=== PATIENT | male | born 1985 | race Caucasian/White ===

== ENCOUNTER 2017-02-07 06:24 | Emergency (ER) | payer BC, OTHER ==
[2017-02-07 06:48] VITALS: BP 141/100
--- NOTE | 2017-02-07 06:49 | EDM.PDOC ---
<Dontrell Strange - Last Filed: 02/07/17 06:46> ED HPI GENERAL MEDICAL PROBLEM - General Chief Complaint: Lower Extremity Injury/Pain Stated Complaint: ROLLED HIS RIGHT ANKLE Time Seen by Provider: 02/07/17 06:46 Source of Information: Reports: Patient - History of Present Illness INITIAL COMMENTS - FREE TEXT/NARRATIVE: He fell from a ladder about three weeks ago . Now he has right ankle pain. he denies other injury no LOC - Related Data Allergies Allergy/AdvReac Type Severity Reaction Status Date / Time No Known Allergies Allergy Verified 02/07/17 06:41 Home Meds: Home Meds . [No Known Home Meds] 02/07/17 [History] Review of Systems - Review of Systems Review Of Systems: See Below (no other injury reported) ED EXAM, GENERAL - Physical Exam Exam: See Below Free Text/Narrative:: right ankle: normal distal perfusion; bilateral tenderness; no joint instability ; lateral ankle swelling General Appearance: Alert, No Apparent Distress (right ankle: tenderness over medial and lateral malleolus with swelling about lateral malleolous) Course - Vital Signs Last Recorded V/S: Last Vital Signs Temp 36.5 C 02/07/17 06:41 Pulse 67 02/07/17 06:41 Resp 18 02/07/17 06:41 BP 141/100 H 02/07/17 06:41 Pulse Ox 95 02/07/17 06:41 - Orders/Labs/Meds Orders: Active Orders 24 hr Category Date Time Status Ankle Min 3V Rt [CR] Stat Exams 02/07/17 06:45 Taken Departure - Departure Disposition: Home, Self-Care 01 Clinical Impression: Right ankle sprain Qualifiers: Encounter type: initial encounter Involved ligament of ankle: unspecified ligament Qualified Code(s): S93.401A - Sprain of unspecified ligament of right ankle, initial encounter - Discharge Information Instructions: Ankle Sprain, [id number] Referrals: PCP,None [Primary Care Provider] - Forms: ED Department Discharge Additional Instructions: The following information is given to patients seen in the emergency department who are being discharged to home. This information is to outline your options for follow-up care. We provide all patients seen in our emergency department with a follow-up referral. The need for follow-up, as well as the timing and circumstances, are variable depending upon the specifics of your emergency department visit. If you don't have a primary care physician on staff, we will provide you with a referral. We always advise you to contact your personal physician following an emergency department visit to inform them of the circumstance of the visit and for follow-up with them and/or the need for any referrals to a consulting specialist. The emergency department will also refer you to a specialist when appropriate. This referral assures that you have the opportunity for follow-up care with a specialist. All of these measure are taken in an effort to provide you with optimal care, which includes your follow-up. Under all circumstances we always encourage you to contact your private physician who remains a resource for coordinating your care. When calling for follow-up care, please make the office aware that this follow-up is from your recent emergency room visit. If for any reason you are refused follow-up, please contact the [facility] Emergency Department at and asked to speak to the emergency department charge nurse. Ice, Aleve elevation for pain duty for 1 week return if any symptoms worsen otherwise follow-up with her primary care as needed. 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 Patient's x- ray shows no ankle fracture he's being given a stirrup splint and instructed to ice elevate rest his ankle. He prefers to take Aleve for pain and will follow- up as needed. He is discharged stable Departure - Departure Time of Disposition: 07:29 Condition: Good
--- NOTE | 2017-02-07 11:56 | CR ---
EXAM DATE: 02/07/17 PATIENT'S AGE: 31 Patient: SCOTT VASQUES Facility: [place], [place] Site . Site : 1985 Study: XRay Extremity Right ANKLE [id number]/19/2017 7:04:43 AM Ordering Physician: Alexandr Jon Final Report: INDICATION: Trauma. Pain. TECHNIQUE: Three views of the right ankle. FINDINGS: Soft tissue swelling about the right ankle predominantly laterally. No fracture or dislocation. The tibiotalar joint space is intact. IMPRESSION: Soft tissue swelling. The right ankle is otherwise negative. Dictated by Luan Reynoso MD @ 02/07/2017 7:16:15 AM Dictated by: Luan Reynoso MD @ 02/07/2017 07:16:22 (Electronic Signature) Report Signed by Proxy. PING
== END 2017-02-07 07:44 | disposition home or self-care (01) ==
LOC: MW.ED 06:24
DX: S93.401A Sprain of unspecified ligament of right ankle, initial encounter (principal); W11.XXXA Fall on and from ladder, initial encounter
CPT/HCPCS: 73610-26-RT; 73610-RT; 99282; 99283